=== PATIENT | female | born 1955 | race Caucasian/White ===

== ENCOUNTER 2023-05-11 06:18 | Day surgery (SDC) | payer OTHER, SELFPAY ==
[2023-05-11] VITALS (9 sets, daily range): BP systolic 95–136; BP diastolic 50–74; BMI 29.2
[2023-05-11] MEDS: TYLENOL 1000 MG PO (07:11)
[2023-05-11] MEDS: NORMOSOL-R 1000 IV (07:18)
--- NOTE | 2023-05-11 07:39 | W.SUR.PREOP ---
Pre-Operative Surgical Note
-
I have examined this patient prior to the performance of the scheduled procedure.
The patient's condition is unchanged from the time of the current History and
Physical and the patient is able to undergo the scheduled procedure.
--- NOTE | 2023-05-11 10:27 | W.IMMPOSTOP ---
Surgical Immed Post Op Note
-
Primary Surgeon: STACY Gallardo MD
Assisting Surgeon:
Pre-op Diagnosis: history of malignancy of the breast, surgically acquired absence of bilateral breasts
Post-op Diagnosis: history of malignancy of the breast, surgically acquired absence of bilateral breasts
Procedure Performed: bilateral removal of tissue expanders, bilateral capsulectomies, bilateral delayed insertion of silicone gel implants
Anesthesia Type: General
Specimen / Cultures: none
Estimated Blood Loss: 15 cc
Operative Findings: as expected
--- NOTE | 2023-05-11 10:29 | OR.RPT ---
Operative Report
Operative Report
Surgeon: STACY Gallardo MD
Preoperative diagnosis: Personal history of malignancy of breast, surgically acquired absence of bilateral breast
Postoperative diagnosis: Same
Procedure:
1. Bilateral removal of breast tissue research and development chemist
2. Bilateral extensive capsulectomies and capsulotomies with left capsulorrhaphy
3. Bilateral delayed insertion of silicone gel breast implants
anesthesia: General
Complications: None
EBL: 15 cc
Indications for procedure: Patient is a 67-year-old female with a history of breast cancer status post bilateral mastectomies. She underwent immediate tissue research and development chemist reconstruction. Postoperative course was complicated by delayed wound healing of
the left nipple areola. This was allowed to heal by secondary intention with in office debridements and secondary closure. She was successfully expanded in the office however the right tissue research and development chemist malfunction causing a deflation. That said
she had enough redundant mastectomy skin to allow for adequate reconstruction. As such the decision was made to return to the operating room to remove the bilateral tissue expanders and replacement with silicone gel implants. Capsulectomies and
capsulorrhaphy's would be required to achieve symmetry. Risks of implants were reviewed at length including capsular contracture, infection, wrinkling and rippling, ALCL, malposition and asymmetry. She understood these risks and desired to proceed.
Procedure in detail: Patient was identified in the preoperative area and the surgical site was confirmed to be the bilateral breasts. All questions were answered consents were confirmed. Patient was taken back to the operating placed supine on
table. Anesthesia was induced and an ETT was placed. patient was prepped and draped in the usual sterile fashion using ChloraPrep solution. Timeout for patient safety was performed was confirmed that bilateral SCDs were in place and preoperative
antibiotics have been administered. Procedure began with the injection of local anesthetic 1% lidocaine with epinephrine in the bilateral inframammary scars. A total of 10 cc was was utilized. 15 blade was then utilized to incise the right
inframammary scar. Bovie electrocautery was used to dissect down to the implant capsule and a stairstep capsulotomy was performed. The tissue research and development chemist was removed. Partial capsulectomy was then performed with extensive capsulotomies to make room
for the implant. Elevation of the mastectomy skin flap was performed superior medially along the chest wall. Meticulous hemostasis was ensured and then a 415 cc gel sizer was placed into the pocket. Additional adjustments to the mastectomy skin
and capsule were made to allow for an aesthetic result. The sizer was then removed and the wound bed was irrigated with 2 rounds of double antibiotic solution followed by dilute Betadine solution. New gloves were donned and a Rhodes funnel was
utilized to place a 415 cc moderate profile silicone gel Sientra implant into the right breast. The wound was then closed in layers with 2-0 Vicryl's deep followed by 3-0 and 4-0 Monocryl's. Attention was then drawn to the left side where the
exact same procedure was performed. 15 blade was used to incise the scar and Bovie electrocautery was used to dissect down to the implant capsule. The tissue research and development chemist was removed and the implant pocket was thoroughly inspected. Superior medial
capsulotomies were performed with elevation of the mastectomy skin flaps. Lateral capsulorrhaphy was performed after placement of the temporary silicone gel implant to ensure symmetry and pocket from the left to the right. Due to a relative
paucity of soft tissue on the left side a larger implant was selected to achieve symmetry. After confirming meticulous hemostasis and irrigating the wound bed with double antibiotic solution solution and dilute Betadine solution, a 455 cc moderate
profile smooth silicone gel Santry implant was placed into the left breast. In layers with 2-0 Vicryl deep followed by 3-0 and 4-0 Monocryl. Patient tolerated the procedure well. She was flexed at the waist and the relative symmetry was
evaluated. This was deemed to be completely acceptable. All counts were correct at the end the case. She was extubated taken the PACU for further care. Wounds were dressed with bacitracin ointment followed by Telfa and Tegaderms. A lightly
compressive bra was applied.
[2023-05-11] MEDS: ZOFRAN 4 MG IV (11:52)
== END 2023-05-11 12:35 | disposition home or self-care (01) ==
LOC: SDS 06:18
PROVIDERS: ATTENDING PHYSICIAN Surgery Plastic and Reconstructive Surgery
DX: T85.42XA Displacement of breast prosthesis and implant, initial encounter (principal); Y83.1 Surgical operation with implant of artificial internal device as the cause of abnormal reaction of the patient, or of later complication, without mention of misadventure at the time of the procedure; Z85.3 Personal history of malignant neoplasm of breast; Z90.13 Acquired absence of bilateral breasts and nipples
CPT/HCPCS: 11970; 19371; 19342; L8600; C1789

== ENCOUNTER → 2024-04-13 12:02 | Outpatient (REF) | payer OTHER, SELFPAY | LOC: RAD 12:02 | PROVIDERS: ATTENDING PHYSICIAN Internal Medicine Hematology & Oncology; FAMILY PHYSICIAN Family Medicine | DX: C50.411 Malignant neoplasm of upper-outer quadrant of right female breast (principal); C50.412 Malignant neoplasm of upper-outer quadrant of left female breast; Z79.811 Long term (current) use of aromatase inhibitors; R79.9 Abnormal finding of blood chemistry, unspecified; E78.00 Pure hypercholesterolemia, unspecified | CPT/HCPCS: 71046 ==